=== PATIENT | female | born 1935 | race Caucasian/White ===

== ENCOUNTER → 2017-07-28 | Outpatient (CLI) | payer MEDICARE | END | disposition home or self-care (01) | LOC: ECHO 10:40 | DX: I11.9 Hypertensive heart disease without heart failure (principal); I08.1 Rheumatic disorders of both mitral and tricuspid valves; R07.9 Chest pain, unspecified | CPT/HCPCS: 93225; 93306 ==

== ENCOUNTER 2018-08-02 10:48 | Inpatient (IN) | payer MEDICARE ==
[~2018-08-02] VITALS: Ht 162.6 cm; Wt 66.3 kg
[2018-08-02 11:11] LABS: BASO # 0.1 x10^3/uL (0.0-0.2); BASO % 1 % (0-3); EOS # 0.2 x10^3/uL (0.0-0.7); EOS % 2 % (0-3); HEMATOCRIT 51.4 % (36.0-47.0); LYMPH # 2.5 x10^3/uL (1.0-4.8); LYMPH % 28 % (24-48); MEAN CORPUSCULAR HEMOGLOBIN 31 pg (25-35); MEAN CORPUSCULAR HGB CONC 33 g/dL (31-37); MEAN CORPUSCULAR VOLUME 93 fL (79-100); MONO # 0.7 x10^3/uL (0.0-1.1); MONO % 8 % (0-9); NEUT # 5.5 x10^3uL (1.8-7.7); NEUT % 61 % (31-73); PLATELET COUNT 243 x10^3/uL (140-400); RED BLOOD COUNT 5.51 x10^6/uL (3.50-5.40); RED CELL DISTRIBUTION WIDTH 13.9 % (11.5-14.5)
--- NOTE | 2018-08-02 11:14 | RAD ---
EXAM: Head CT without contrast. HISTORY: Slurred speech. Headache. Code stroke. TECHNIQUE: Computed tomographic images of the head were obtained without contrast. *One or more of the following individualized dose reduction techniques were utilized for this examination: 1. Automated exposure control. 2. Adjustment of the mA and/or kV according to patient size. 3. Use of iterative reconstruction technique. COMPARISON: None. FINDINGS: There is no acute or subacute extra-axial or intraparenchymal hemorrhage. There is no mass effect or midline shift. There is no hydrocephalus. There is cerebral atrophy with increased bifrontal extra-axial space. There are areas of hypodensity within the cerebral white matter, likely due to chronic small vessel disease. There is incidental orbital band keratopathy and a suspected right rocio bullosa. The mastoid air cells are clear. No suspicious calvarial lesion is seen. IMPRESSION: 1. No acute intracranial finding. Note is made that MRI is more sensitive for acute infarction. 2. Subtle areas of hypodensity within the cerebral white, likely due to chronic small vessel disease. 3. Cerebral atrophy. Findings were discussed with Dr. Toribio at 1110 hours on 08/02/2018 according to code stroke protocol. Electronically signed by: Shikha Torres MD (08/02/2018 11:10 AM) [facility]
[2018-08-02] MEDS ORDERED: fentaNYL PF VIAL 100 MCG/2 ML VIAL IV ONE ×2 (11:15→12:00)
[2018-08-02] MEDS ORDERED: ONDANSETRON PF 4 MG/2 ML VIAL. IV ONE (11:15)
[2018-08-02 11:19] LABS: CALCIUM 10.2 mg/dL (8.5-10.1); CREATININE 0.9 mg/dL (0.6-1.0); GFR 59.9
[2018-08-02 11:25] LABS: ALBUMIN 3.8 g/dL (3.4-5.0); PROTHROMBIN TIME PATIENT 13.5 SEC (11.7-14.0); TOTAL BILIRUBIN 0.5 mg/dL (0.2-1.0); TOTAL PROTEIN 7.5 g/dL (6.4-8.2)
--- NOTE | 2018-08-02 11:32 | RAD ---
EXAM: Chest, single view. HISTORY: Slurred speech. COMPARISON: None. FINDINGS: A frontal view of the chest obtained. There is no infiltrate, pleural effusion or pneumothorax. The heart is upper normal in size. There are partially calcified breast implants. IMPRESSION: No acute pulmonary finding. Electronically signed by: Shikha Torres MD (08/02/2018 11:29 AM) [facility]
[2018-08-02] MEDS ORDERED: CONTRAST GIVEN. MC PRN (11:45)
[2018-08-02] MEDS ORDERED: IOHEXOL 300 MG/ML 100ML VIAL. IV ONE (11:45)
--- NOTE | 2018-08-02 12:08 | PHYS DOC ---
Past Medical History Past Medical History: Arthritis, Hypertension, Migraines Alcohol Use: None Drug Use: None Adult General Chief Complaint Chief Complaint: HEADACHE HPI HPI Patient is a 82 year old female who presents with complaining of headache and blurred vision. Patient states she was [place] [facility] and felt sudden onset of sharp right retro-orbital headache at 1020(less than 50 minutes prior to arrival to ER) start blurred vision and eye tearing and redness is the worse pain she will had. Patient rated her pain 10 over 10 and friend states she had slurred speech, facial droop and problem with her balance. Patient states she had the same pain 3 days ago that last about an hour and resolved spontaneously. Patient denies nausea, chest pain, shortness of breath, extremity weakness or numbness. She rated her pain 7/10 after arrival to ER. Code stroke was activated after evaluation of patient. Review of Systems Review of Systems Constitutional: Denies fever or chills [] Eyes: Denies change in visual acuity, redness, or eye pain [] HENT: Denies nasal congestion or sore throat [] Respiratory: Denies cough or shortness of breath [] Cardiovascular: No additional information not addressed in HPI [] GI: Denies abdominal pain, nausea, vomiting, bloody stools or diarrhea [] : Denies dysuria or hematuria [] Musculoskeletal: Denies back pain or joint pain [] Integument: Denies rash or skin lesions [] Neurologic: Reports headache, denies focal weakness or sensory changes [] Endocrine: Denies polyuria or polydipsia [] All other systems were reviewed and found to be within normal limits, except as documented in this note. Current Medications Current Medications Current Medications Medications (Trade) Dose Ordered Sig/Vijaya Start Time Stop Time Status Last Admin Dose Admin Fentanyl Citrate (Fentanyl 2ml Vial) 50 mcg 1X ONCE 08/02/18 11:15 08/02/18 11:16 DC 08/02/18 11:14 50 MCG Info (CONTRAST GIVEN -- Rx MONITORING) 1 each PRN DAILY PRN 08/02/18 11:45 08/04/18 11:44 Iohexol (Omnipaque 300 Mg/ml) 75 ml 1X ONCE 08/02/18 11:45 08/02/18 11:46 DC 08/02/18 11:45 75 ML Ondansetron HCl (Zofran) 4 mg 1X ONCE 08/02/18 11:15 08/02/18 11:16 DC 08/02/18 11:14 4 MG Allergies Allergies Allergies Coded Allergies Type Severity Reaction Last Updated Verified Sulfa (Sulfonamide Antibiotics) Allergy Unknown 08/02/18 Yes morphine Allergy Unknown 08/02/18 Yes nitrofurantoin Allergy Unknown 08/02/18 Yes Physical Exam Physical Exam Constitutional: Well developed, well nourished, moderate distress, non-toxic appearance. [] HENT: Normocephalic, atraumatic, bilateral external ears normal, oropharynx moist, no oral exudates, nose normal, mild right facial droop. [] Eyes: PERRLA, EOMI, conjunctiva normal, no discharge. [] Neck: Normal range of motion, no tenderness, supple, no stridor. [] Cardiovascular:Heart rate regular rhythm, no murmur [] Lungs & Thorax: Bilateral breath sounds clear to auscultation [] Abdomen: Bowel sounds normal, soft, no tenderness, no masses, no pulsatile masses. [] Skin: Warm, dry, no erythema, no rash. [] Back: No tenderness, no CVA tenderness. [] Extremities: No tenderness, no cyanosis, no clubbing, ROM intact, no edema. [] Neurologic: Alert and oriented X 3, normal motor function, normal sensory fun ction, very mild right facial droop, mild slurred speech. NIHS Of 2 Psychologic: Affect normal, judgement normal, mood normal. [] Current Patient Data Vital Signs Vital Signs Date Time Temp Pulse Resp B/P (MAP) Pulse Ox O2 Delivery O2 Flow Rate FiO2 08/02/18 11:45 60 18 95 08/02/18 10:52 98.2 115/81 (92) Room Air 98.2 Lab Values Laboratory Tests Test 08/02/18 10:56 08/02/18 11:01 Glucose (Fingerstick) 106 mg/dL (70-99) H White Blood Count 9.0 x10^3/uL (4.0-11.0) Red Blood Count 5.51 x10^6/uL (3.50-5.40) H Hemoglobin 17.0 g/dL (12.0-15.5) H Hematocrit 51.4 % (36.0-47.0) H Mean Corpuscular Volume 93 fL (79-100) Mean Corpuscular Hemoglobin 31 pg (25-35) Mean Corpuscular Hemoglobin Concent 33 g/dL (31-37) Red Cell Distribution Width 13.9 % (11.5-14.5) Platelet Count 243 x10^3/uL (140-400) Neutrophils (%) (Auto) 61 % (31-73) Lymphocytes (%) (Auto) 28 % (24-48) Monocytes (%) (Auto) 8 % (0-9) Eosinophils (%) (Auto) 2 % (0-3) Basophils (%) (Auto) 1 % (0-3) Neutrophils # (Auto) 5.5 x10^3uL (1.8-7.7) Lymphocytes # (Auto) 2.5 x10^3/uL (1.0-4.8) Monocytes # (Auto) 0.7 x10^3/uL (0.0-1.1) Eosinophils # (Auto) 0.2 x10^3/uL (0.0-0.7) Basophils # (Auto) 0.1 x10^3/uL (0.0-0.2) Prothrombin Time 13.5 SEC (11.7-14.0) Prothrombin Time INR 1.1 (0.8-1.1) PTT 29 SEC (24-38) Sodium Level 141 mmol/L (136-145) Potassium Level 4.0 mmol/L (3.5-5.1) Chloride Level 104 mmol/L (98-107) Carbon Dioxide Level 29 mmol/L (21-32) Anion Gap 8 (6-14) Blood Urea Nitrogen 13 mg/dL (7-20) Creatinine 0.9 mg/dL (0.6-1.0) Estimated GFR (Cockcroft-Gault) 59.9 BUN/Creatinine Ratio 14 (6-20) Glucose Level 113 mg/dL (70-99) H Calcium Level 10.2 mg/dL (8.5-10.1) H Total Bilirubin 0.5 mg/dL (0.2-1.0) Aspartate Amino Transferase (AST) 19 U/L (15-37) Alanine Aminotransferase (ALT) 22 U/L (14-59) Alkaline Phosphatase 73 U/L (46-116) Troponin I Quantitative < 0.017 ng/mL (0.000-0.055) Total Protein 7.5 g/dL (6.4-8.2) Albumin 3.8 g/dL (3.4-5.0) Albumin/Globulin Ratio 1.0 (1.0-1.7) Laboratory Tests 08/02/18 11:01 Laboratory Tests 08/02/18 11:01 EKG EKG EKG interpreted by me. EKG at 11 in the right showed sinus bradycardia at rate of 51, low voltage QRS, poor R-wave progress in anteroseptal leads, normal NV and QT intervals, no acute ST and T-wave abnormalities.[] Radiology/Procedures Radiology/Procedures [facility] [address] [place], [place] [id number] IMAGING REPORT Signed PATIENT: MARLIN DOMINGO ACCOUNT: [id number] : 1935 LOCATION: ER AGE: 82 SEX: F EXAM STATUS: REG ER ORD. PHYSICIAN: STARR CABEZAS MD REASON: slurred speech and headache CODE STROKE ED 4180 PROCEDURE: CT CODE STROKE HEAD WO EXAM: Head CT without contrast. HISTORY: Slurred speech. Headache. Code stroke. TECHNIQUE: Computed tomographic images of the head were obtained without contrast. *One or more of the following individualized dose reduction techniques were utilized for this examination: 1. Automated exposure control. 2. Adjustment of the mA and/or kV according to patient size. 3. Use of iterative reconstruction technique. COMPARISON: None. FINDINGS: There is no acute or subacute extra-axial or intraparenchymal hemorrhage. There is no mass effect or midline shift. There is no hydrocephalus. There is cerebral atrophy with increased bifrontal extra-axial space. There are areas of hypodensity within the cerebral white matter, likely due to chronic small vessel disease. There is incidental orbital band keratopathy and a suspected right rocio bullosa. The mastoid air cells are clear. No suspicious calvarial lesion is seen. IMPRESSION: 1. No acute intracranial finding. Note is made that MRI is more sensitive for acute infarction. 2. Subtle areas of hypodensity within the cerebral white, likely due to chronic small vessel disease. 3. Cerebral atrophy. Findings were discussed with Dr. Cabezas at 1110 hours on 08/02/2018 according to code stroke protocol. Electronically signed by: Shikha Sandoval MD (08/02/2018 11:10 AM) [facility] DICTATED and SIGNED BY: SHIKHA SANDOVAL MD DATE: 08/02/18 1110 [facility] [address] [place] [address] IMAGING REPORT Signed PATIENT: MARLIN DOMINGO ACCOUNT: [id number] : 1935 LOCATION: ER AGE: 82 SEX: F EXAM STATUS: REG ER ORD. PHYSICIAN: STARR CABEZAS MD REASON: Slurred speech and headache PROCEDURE: PORTABLE CHEST 1V EXAM: Chest, single view. HISTORY: Slurred speech. COMPARISON: None. FINDINGS: A frontal view of the chest obtained. There is no infiltrate, pleural effusion or pneumothorax. The heart is upper normal in size. There are partially calcified breast implants. IMPRESSION: No acute pulmonary finding. Electronically signed by: Shikha Sandoval MD (08/02/2018 11:29 AM) [facility] DICTATED and SIGNED BY: SHIKHA SANDOVAL MD DATE: 08/02/18 112 Course & Med Decision Making Course & Med Decision Making Pertinent Labs and Imaging studies reviewed. (See chart for details) Evaluation of patient in ER showed 82-year-old male patient brought in by friend because of sudden onset of headache, slurred speech and facial droop. Patient had blood pressure of 120s at arrival to ER and NIH scale of 2. Blood pressure gradually improved with fentanyl to 180s. CT head was unremarkable. Patient was not a candidate for TPA because of very low NIH scale that gradually improved condition after decrease of blood pressure and headache. CT angio of head and neck is pending. Dr. Austin on-call neurologist was consulted at 1150 and agreed with not starting TPA.Patient requiring admission for further evaluation and treatment. Discussed with Dr. Moore who is in agreement with admission. Discussed findings and plan with patient and family, who acknowledge understanding and agreement. Dragon Disclaimer Dragon Disclaimer This electronic medical record was generated, in whole or in part, using a voice recognition dictation system. Departure Departure Impression: Primary Impression: Acute focal neurological deficit, onset within 3 hours Additional Impressions: Sudden onset of severe headache Hypertensive urgency Disposition: 09 ADMITTED INPATIENT (at 1201) Admitting Physician: Other (Dr Moore accepted admission at 1200) Condition: GUARDED Referrals: BOB NELSON MD (PCP) NIHSS Stroke Scale NIH Stroke Scale: NIH Stroke Scale Response (Comments) Value Level of Consciousness: 0 Alert/Responsive 0 LOC Questions: 0 Answers both correctly 0 Best Gaze: 0 Normal 0 Visual: 0 No visual loss 0 Facial Palsy: 1 Minor paralysis 1 Motor - Left Arm 0 No drift 0 Motor - Right Arm 0 No drift 0 Motor - Left Leg 0 No drift 0 Motor: Right Leg 0 No drift 0 Limb Ataxia: 0 Absent 0 Sensory: 0 No loss 0 Best Language: 1 Mild to mod aphasia 1 Dysathria: 0 Normal 0 Extinction and Inattention: 0 Normal 0 Total 2 Critical Care Time Critical care time was 70 minutes exclusive of procedures. Problem Qualifiers STARR CABEZAS MD August 02, 2018 12:08
--- NOTE | 2018-08-02 12:23 | RAD ---
EXAM: Head and neck CT angiogram with intravenous contrast. HISTORY: Code stroke. Slurred speech. Headache. TECHNIQUE: Computed tomographic images of the head and neck were obtained following the administration of 95 cc Omnipaque 300 intravenous contrast. Three-dimensional maximum intensity projection images were obtained. *One or more of the following individualized dose reduction techniques were utilized for this examination: 1. Automated exposure control. 2. Adjustment of the mA and/or kV according to patient size. 3. Use of iterative reconstruction technique. COMPARISON: Noncontrast head CT obtained on the same date. FINDINGS: There is partially calcified atherosclerotic plaque involving the aortic arch. There is no evidence of aortic aneurysm or dissection on the [id number]. There is partially calcified atherosclerotic plaque within the aortic arch great vessel origins and proximal aspects. This results in less than 50 percent stenosis. There is also partially calcified atherosclerotic plaque at the origin of the right vertebral artery, without significant stenosis. There is partially calcified atherosclerotic plaque within the carotid bulbs and proximal internal and external carotid arteries. This results in less than 50 percent stenosis. There is slight luminal irregularity involving the supraclinoid internal carotid arteries, with less than 50 percent stenosis. The anterior commuting artery and bilateral posterior communicating arteries are patent. There is slight relative decreased flow within the superior left middle cerebral artery branches. This may be developmental. No filling defect is seen. No aneurysm is seen. The right vertebral artery is slightly dominant. The bilateral posterior inferior cerebellar arteries are both seen. The basilar artery is slightly diminutive, likely due to anterior dominant circulation. No suspicious enhancing lesion is seen. There is cerebral volume loss. There are areas of hypodensity within the cerebral white matter, likely due to chronic small vessel disease. There is no mass effect or midline shift. There is no hydrocephalus. The airways midline and widely patent. There is no neck lymphadenopathy. There is pulmonary emphysema. There are prominent central pulmonary vessels which may be due to chronic pulmonary artery hypertension. There are few calcified granulomas. There are degenerative changes throughout the spine. There is multilevel listhesis and cervical kyphosis. There are few bone islands. There is no acute osseous finding. There is no severe foraminal or central canal stenosis. There is a suspected tiny left thyroid cyst. There is a 5 mm nodule adjacent to a calcified granuloma within the right upper lobe. IMPRESSION: 1. Slight relative decreased flow within the superior left middle cerebral artery branches. This is not seen on reconstructed images and may be physiologic or development. No filling defect is seen to suggest embolus or hemodynamically significant stenosis. 2. Mild atherosclerotic plaque involving the aortic arch great vessels and carotid bifurcations, with less than 50 percent stenosis. 3. Decreased attenuation within the cerebral white matter,, likely due to chronic small vessel disease. 4. Cerebral atrophy. 5. Pulmonary emphysema. 6. 5 mm nodule adjacent to a calcified granuloma within the right upper lobe. Follow-up can be performed according to Fleischner Society criteria if clinically indicated. Fleischner Society recommendations (Radiology 2017): SOLID NODULES Solitary solid nodule <6 mm - low-risk patient: no routine follow-up required - high-risk patient: optional CT at 12 months (particularly with suspicious nodule morphology and/or upper lobe location) Solitary solid nodule 6-8 mm - low-risk patient: CT at 6-12 months, then consider CT at 18-24 months - high risk patient: CT at 6-12 months, then if persistent CT at 18-24 months Solitary solid nodule >8 mm - consider CT at 3 months, PET/CT, or tissue sampling Multiple solid nodules <6 mm - low-risk patient: no routine follow-up required - high-risk patient: optional CT at 12 months Multiple solid nodules >6 mm - low-risk patient: CT at 3-6 months, then consider CT at 18-24 months - high risk patient: CT at 3-6 months, then if persistent CT at 18-24 months SUBSOLID NODULES Solitary ground glass nodule <6 mm - no routine follow-up required Solitary ground glass nodule > or = 6 mm - CT at 6-12 months, then if persistent CT every 2 years until 5 years Solitary part solid nodule > or = 6mm - CT at 3-4 months, the if persistent and solid component remains <6 mm, annual CT until 5 years Multiple subsolid nodules <6 mm - CT at 3-6 months, then if stable consider CT at 2 and 4 years in high risk patients Multiple subsolid nodules > or = 6 mm - CT at 3-6 months, then subsequent management based on the most suspicious nodule(s) PQRS Compliance Statement - Stenosis calculations for CT, MR and conventional angiography are based upon measurement of the distal ICA diameter in accordance with the NASCET methodology. Stenosis calculations for carotid ultrasound studies are derived from validated velocity criteria which are known to correlate with the NASCET methodology. Electronically signed by: Shikha Torres MD (08/02/2018 12:20 PM) [facility]
--- NOTE | 2018-08-02 12:35 | EKG ---
[facility] [address] [place] [id number] Test Date: 2018-08-02 Test Time: 11:11:44 Pat Name: MARLIN DOMINGO Department: Room: Gender: F Card Decorator: : 1935 Requested By: STARR CABEZAS Order Number: [id number] Reading MD: Marvin Brar Measurements Intervals [place] Rate: 51 P: 43 CO: 126 QRS: 42 QRSD: 84 T: 20 QT: 426 QTc: 394 Interpretive Statements SINUS RHYTHM LOW LIMB LEAD VOLTAGE QRS(T) CONTOUR ABNORMALITY CANNOT RULE OUT ANTEROSEPTAL MYOCARDIAL DAMAGE Electronically Signed On 08-05-2018 16:00:33 CDT by Marvin Brar
[2018-08-02] MEDS ORDERED: ACETAMINOPHEN 650 MG SUPP.RECT. PR PRN (14:45)
[2018-08-02] MEDS ORDERED: ASPIRIN RECTAL 300 MG SUPP. PR PRN (14:45)
[2018-08-02] MEDS ORDERED: ACETAMINOPHEN 325 MG TABLET. PO PRN (14:45)
--- NOTE | 2018-08-02 14:47 | PDOC2 ---
NEUROLOGY CONSULT Date of Admission Date of Admission DATE: 08/02/18 TIME: 14:40 Reason for Consult Reason for Consult: Stroke symptoms Referring Physician Referring Physician: Dr. Moore PCP: Dr. Bar Source Source: Chart review, Patient History of Present Illness History of Present Illness The patient is an 82-year-old right-handed female who about 10:30 today noticed headache, right facial drooping, dizziness. She has a long history of headaches. She had some similar symptoms 2 days ago. She feels fine now. Blood pressure was markedly elevated in the emergency department. I discussed the case with Dr. Toribio. We agreed that the patient was not a candidate for alteplase given the rapid improvement in symptoms and NIH score of 2. Patient denies any prior history of stroke, seizure, or head injury. Past Medical History Cardiovascular: HTN, Hyperlipidemia Musculoskeletal: Osteoarthritis Rheumatologic: Other (lytic skull lesions, workup negative for myeloma.) Past Surgical History Past Surgical History: Other (lumbar instrumentation) Family History Family History: CAD, CVA Social History Social History , smokes, no alcohol, retired Current Medications Current Medications Current Medications Ondansetron HCl (Zofran) 4 mg 1X ONCE IV Last administered on 08/02/18at 11:14; Start 08/02/18 at 11:15; Stop 08/02/18 at 11:16; Status DC Fentanyl Citrate (Fentanyl 2ml Vial) 50 mcg 1X ONCE IV Last administered on 08/02/18at 11:14; Start 08/02/18 at 11:15; Stop 08/02/18 at 11:16; Status DC Iohexol (Omnipaque 300 Mg/ml) 75 ml 1X ONCE IV Last administered on 08/02/18at 11:45; Start 08/02/18 at 11:45; Stop 08/02/18 at 11:46; Status DC Info (CONTRAST GIVEN -- Rx MONITORING) 1 each PRN DAILY PRN MC SEE COMMENTS; Start 08/02/18 at 11:45; Stop 08/04/18 at 11:44 Fentanyl Citrate (Fentanyl 2ml Vial) 50 mcg 1X ONCE IV Last administered on 08/02/18at 12:08; Start 08/02/18 at 12:00; Stop 08/02/18 at 12:01; Status DC Allergies Allergies: Coded Allergies: Sulfa (Sulfonamide Antibiotics) (Verified Allergy, Unknown, 5/5/19) morphine (Verified Allergy, Unknown, 08/02/18) nitrofurantoin (Verified Allergy, Unknown, 08/02/18) ROS Review of System Negative for fever, chills, weight loss, shortness of breath, chest pain, indigestion, hematochezia, melena, and dysuria. Full 14-point review of systems is negative. Physical Exam Physical Examination General: Well-developed, well-nourished white female in no acute distress HEENT: Normocephalic andatraumatic. Tympanic membranes clear.Temporal arteriespulsatile and nontender.Fundoscopic exam unremarkable Neck: Supple without bruit, no meningismus Musculoskeletal: Stability:see neurologic. Gait exam:see neurologic. Tone:see neurologic.Strength:see neurologic. Neurological: Mental Status:intact, orientation, memory, attention span/concentration, language, fund of knowledge normal. Cranial Nerves:Pupils equal and reactive to light, extraocular movements areintact, visual cash are full to confrontation. Facial sensation is normal. There is no facial asymmetry. Vestibulo-ocular reflex is intact. Palate elevates and tongue protrudes in midline. All other cranial related problems are negative except as mentioned before.Reflexes:2+ and symmetric with flexor plantar responses. Motor:5/5 strength with normal tone and bulk. Coordination:Finger-nose finger and [id number] testing are normal. Rapid alternating movements and fine finger movements are intact. Gait:Normal, including tandem. Sensory:Normal pinprick, vibration, light touch, proprioception. Vitals VITALS Vital Signs Date Time Temp Pulse Resp B/P (MAP) Pulse Ox O2 Delivery O2 Flow Rate FiO2 08/02/18 13:38 99 08/02/18 13:20 63 08/02/18 12:08 14 08/02/18 10:52 98.2 115/81 (92) Room Air 98.2 Labs Labs Laboratory Tests Test 08/02/18 10:56 08/02/18 11:01 Glucose (Fingerstick) 106 mg/dL (70-99) White Blood Count 9.0 x10^3/uL (4.0-11.0) Red Blood Count 5.51 x10^6/uL (3.50-5.40) Hemoglobin 17.0 g/dL (12.0-15.5) Hematocrit 51.4 % (36.0-47.0) Mean Corpuscular Volume 93 fL (79-100) Mean Corpuscular Hemoglobin 31 pg (25-35) Mean Corpuscular Hemoglobin Concent 33 g/dL (31-37) Red Cell Distribution Width 13.9 % (11.5-14.5) Platelet Count 243 x10^3/uL (140-400) Neutrophils (%) (Auto) 61 % (31-73) Lymphocytes (%) (Auto) 28 % (24-48) Monocytes (%) (Auto) 8 % (0-9) Eosinophils (%) (Auto) 2 % (0-3) Basophils (%) (Auto) 1 % (0-3) Neutrophils # (Auto) 5.5 x10^3uL (1.8-7.7) Lymphocytes # (Auto) 2.5 x10^3/uL (1.0-4.8) Monocytes # (Auto) 0.7 x10^3/uL (0.0-1.1) Eosinophils # (Auto) 0.2 x10^3/uL (0.0-0.7) Basophils # (Auto) 0.1 x10^3/uL (0.0-0.2) Prothrombin Time 13.5 SEC (11.7-14.0) Prothromb Time International Ratio 1.1 (0.8-1.1) Activated Partial Thromboplast Time 29 SEC (24-38) Sodium Level 141 mmol/L (136-145) Potassium Level 4.0 mmol/L (3.5-5.1) Chloride Level 104 mmol/L (98-107) Carbon Dioxide Level 29 mmol/L (21-32) Anion Gap 8 (6-14) Blood Urea Nitrogen 13 mg/dL (7-20) Creatinine 0.9 mg/dL (0.6-1.0) Estimated GFR (Cockcroft-Gault) 59.9 BUN/Creatinine Ratio 14 (6-20) Glucose Level 113 mg/dL (70-99) Calcium Level 10.2 mg/dL (8.5-10.1) Total Bilirubin 0.5 mg/dL (0.2-1.0) Aspartate Amino Transf (AST/SGOT) 19 U/L (15-37) Alanine Aminotransferase (ALT/SGPT) 22 U/L (14-59) Alkaline Phosphatase 73 U/L (46-116) Troponin I Quantitative < 0.017 ng/mL (0.000-0.055) Total Protein 7.5 g/dL (6.4-8.2) Albumin 3.8 g/dL (3.4-5.0) Albumin/Globulin Ratio 1.0 (1.0-1.7) Laboratory Tests Test 08/02/18 10:56 08/02/18 11:01 Glucose (Fingerstick) 106 mg/dL (70-99) White Blood Count 9.0 x10^3/uL (4.0-11.0) Red Blood Count 5.51 x10^6/uL (3.50-5.40) Hemoglobin 17.0 g/dL (12.0-15.5) Hematocrit 51.4 % (36.0-47.0) Mean Corpuscular Volume 93 fL (79-100) Mean Corpuscular Hemoglobin 31 pg (25-35) Mean Corpuscular Hemoglobin Concent 33 g/dL (31-37) Red Cell Distribution Width 13.9 % (11.5-14.5) Platelet Count 243 x10^3/uL (140-400) Neutrophils (%) (Auto) 61 % (31-73) Lymphocytes (%) (Auto) 28 % (24-48) Monocytes (%) (Auto) 8 % (0-9) Eosinophils (%) (Auto) 2 % (0-3) Basophils (%) (Auto) 1 % (0-3) Neutrophils # (Auto) 5.5 x10^3uL (1.8-7.7) Lymphocytes # (Auto) 2.5 x10^3/uL (1.0-4.8) Monocytes # (Auto) 0.7 x10^3/uL (0.0-1.1) Eosinophils # (Auto) 0.2 x10^3/uL (0.0-0.7) Basophils # (Auto) 0.1 x10^3/uL (0.0-0.2) Prothrombin Time 13.5 SEC (11.7-14.0) Prothromb Time International Ratio 1.1 (0.8-1.1) Activated Partial Thromboplast Time 29 SEC (24-38) Sodium Level 141 mmol/L (136-145) Potassium Level 4.0 mmol/L (3.5-5.1) Chloride Level 104 mmol/L (98-107) Carbon Dioxide Level 29 mmol/L (21-32) Anion Gap 8 (6-14) Blood Urea Nitrogen 13 mg/dL (7-20) Creatinine 0.9 mg/dL (0.6-1.0) Estimated GFR (Cockcroft-Gault) 59.9 BUN/Creatinine Ratio 14 (6-20) Glucose Level 113 mg/dL (70-99) Calcium Level 10.2 mg/dL (8.5-10.1) Total Bilirubin 0.5 mg/dL (0.2-1.0) Aspartate Amino Transf (AST/SGOT) 19 U/L (15-37) Alanine Aminotransferase (ALT/SGPT) 22 U/L (14-59) Alkaline Phosphatase 73 U/L (46-116) Troponin I Quantitative < 0.017 ng/mL (0.000-0.055) Total Protein 7.5 g/dL (6.4-8.2) Albumin 3.8 g/dL (3.4-5.0) Albumin/Globulin Ratio 1.0 (1.0-1.7) Images Images Head CT without contrast. HISTORY: Slurred speech. Headache. Code stroke. TECHNIQUE: Computed tomographic images of the head were obtained without contrast. *One or more of the following individualized dose reduction techniques were utilized for this examination: 1. Automated exposure control. 2. Adjustment of the mA and/or kV according to patient size. 3. Use of iterative reconstruction technique. COMPARISON: None. FINDINGS: There is no acute or subacute extra-axial or intraparenchymal hemorrhage. There is no mass effect or midline shift. There is no hydrocephalus. There is cerebral atrophy with increased bifrontal extra-axial space. There are areas of hypodensity within the cerebral white matter, likely due to chronic small vessel disease. There is incidental orbital band keratopathy and a suspected right rocio bullosa. The mastoid air cells are clear. No suspicious calvarial lesion is seen. IMPRESSION: 1. No acute intracranial finding. Note is made that MRI is more sensitive for acute infarction. 2. Subtle areas of hypodensity within the cerebral white, likely due to chronic small vessel disease. 3. Cerebral atrophy. Head and neck CT angiogram with intravenous contrast. HISTORY: Code stroke. Slurred speech. Headache. TECHNIQUE: Computed tomographic images of the head and neck were obtained following the administration of 95 cc Omnipaque 300 intravenous contrast. Three-dimensional maximum intensity projection images were obtained. *One or more of the following individualized dose reduction techniques were utilized for this examination: 1. Automated exposure control. 2. Adjustment of the mA and/or kV according to patient size. 3. Use of iterative reconstruction technique. COMPARISON: Noncontrast head CT obtained on the same date. FINDINGS: There is partially calcified atherosclerotic plaque involving the aortic arch. There is no evidence of aortic aneurysm or dissection on the [id number]. There is partially calcified atherosclerotic plaque within the aortic arch great vessel origins and proximal aspects. This results in less than 50 percent stenosis. There is also partially calcified atherosclerotic plaque at the origin of the right vertebral artery, without significant stenosis. There is partially calcified atherosclerotic plaque within the carotid bulbs and proximal internal and external carotid arteries. This results in less than 50 percent stenosis. There is slight luminal irregularity involving the supraclinoid internal carotid arteries, with less than 50 percent stenosis. The anterior commuting artery and bilateral posterior communicating arteries are patent. There is slight relative decreased flow within the superior left middle cerebral artery branches. This may be developmental. No filling defect is seen. No aneurysm is seen. The right vertebral artery is slightly dominant. The bilateral posterior inferior cerebellar arteries are both seen. The basilar artery is slightly diminutive, likely due to anterior dominant circulation. No suspicious enhancing lesion is seen. There is cerebral volume loss. There are areas of hypodensity within the cerebral white matter, likely due to chronic small vessel disease. There is no mass effect or midline shift. There is no hydrocephalus. The airways midline and widely patent. There is no neck lymphadenopathy. There is pulmonary emphysema. There are prominent central pulmonary vessels which may be due to chronic pulmonary artery hypertension. There are few calcified granulomas. There are degenerative changes throughout the spine. There is multilevel listhesis and cervical kyphosis. There are few bone islands. There is no acute osseous finding. There is no severe foraminal or central canal stenosis. There is a suspected tiny left thyroid cyst. There is a 5 mm nodule adjacent to a calcified granuloma within the right upper lobe. IMPRESSION: 1. Slight relative decreased flow within the superior left middle cerebral artery branches. This is not seen on reconstructed images and may be physiologic or development. No filling defect is seen to suggest embolus or hemodynamically significant stenosis. 2. Mild atherosclerotic plaque involving the aortic arch great vessels and carotid bifurcations, with less than 50 percent stenosis. 3. Decreased attenuation within the cerebral white matter,, likely due to chronic small vessel disease. 4. Cerebral atrophy. 5. Pulmonary emphysema. 6. 5 mm nodule adjacent to a calcified granuloma within the right upper lobe. Follow-up can be performed according to Fleischner Society criteria if clinically indicated. Echocardiogram 07/28: LEFT VENTRICLE The left ventricle is normal size. There is mild left ventricular hypertrophy. The left ventricular systolic function is normal. The Ejection Fraction is 65-7 0%. There is normal LV segmental wall motion. RIGHT VENTRICLE The right ventricle is normal size. There is normal right ventricular wall thickness. The right ventricular systolic function is normal. ATRIA The left atrium size is normal. 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 The interatrial septum is intact with no evidence for an atrial septal defect or patent foramen ovale as noted on 2-D or Doppler imaging. AORTIC VALVE Doppler and Color Flow revealed no significant aortic regurgitation. There is no significant aortic valvular stenosis. MITRAL VALVE There is no evidence of mitral valve prolapse. There is no mitral valve stenosis. Doppler and Color-flow revealed mild mitral regurgitation. TRICUSPID VALVE Doppler and Color Flow revealed mild to moderate tricuspid regurgitation. There is no tricuspid valve stenosis. PULMONIC VALVE The pulmonic valve is not well visualized. Doppler and Color Flow revealed mild pulmonic valvular regurgitation. There is no pulmonic valvular stenosis. GREAT VESSELS The aortic root is normal in size. The IVC is normal in size and collapses >50% with inspiration. PERICARDIAL EFFUSION There is no pleural effusion. There is no evidence of significant pericardial effusion. Critical Notification Critical Value: No <Conclusion> The left ventricular systolic function is normal. The Ejection Fraction is 65-70%. There is normal LV segmental wall motion. Mild mitral regurgitation. Mild to moderate tricuspid regurgitation. There is no evidence of significant pericardial effusion. Assessment/Plan Assessment/Plan Impression: Stroke symptoms, most likely related to hypertensive encephalopathy Long history of migraine headaches. Recommendations: Judicious blood pressure control Resume aspirin Check lipids Advised smoking cessation Rehabilitation evaluation Check MRI of the brain She has had CT angiogram and had an echocardiogram a week ago, no need to repeat Check sedimentation rate. Thank you for letting me help with the patient's care. LILIANA BEEBE MD August 02, 2018 14:47
[2018-08-02 14:53] VITALS: BP 149/49
[2018-08-02] MEDS: ASPIRIN ENTERIC COATED 325 MG TABLET.DR. PO SCH (16:56)
[2018-08-02] MEDS: IV NORMAL SALINE 1000ML BAG 1,000 ML IV SCH (16:57)
[2018-08-02] MEDS ORDERED: LISI10TA2 PO (18:39)
[2018-08-02 19:25] VITALS: BP 122/47
[2018-08-02] MEDS ORDERED: MAGNESIUM HYDROXIDE 2,400 MG/30 ML ORAL.SUSP. PO PRN (20:15)
[2018-08-02] MEDS ORDERED: IPRATRPIUM/ALBUTEROL 0.5/2.5MG 3 ML NEBU. NEB SCH (20:15)
[2018-08-02] MEDS ORDERED: ONDANSETRON PF 4 MG/2 ML VIAL. IV PRN (20:15)
[2018-08-02] MEDS ORDERED: ENALAPRILAT 1.25 MG/ML VIAL. IVP PRN (20:15)
[2018-08-02] MEDS ORDERED: ENOXAPARIN 40 MG/0.4 ML SYRINGE. SQ SCH (20:15)
--- NOTE | 2018-08-02 20:27 | PDOC1 ---
History and Physical Date of Admission Date of Admission DATE: 08/02/18 TIME: 20:01 Identification/Chief Complaint Chief Complaint Headache Source Source: Patient History of Present Illness History of Present Illness Ms Lozano is an 82 year old female w/ PMHx OA, lytic skull lesions, HTN, and migraines who presents with complaining of headache and blurred vision. Patient states she was at [employer] and felt sudden onset of sharp right sided headache with retro-orbital pain at near 10:30 am with associated blurred vision and eye tearing and redness. Patient rated her pain 10 / 10 and friend states she had slurred speech (states she always has slurred speech), new right sided facial droop and problem with her balance. Patient states she had the same pain 2-3 days ago that last about an hour and resolved spontaneously. Patient denies nausea, chest pain, shortness of breath, extremity weakness or numbness. Code stroke was called, negative initial head CT and CTA. Neurology was consulted and given her NIH of 2 and rapid improvement once evaluated by neuro and myself tPA was not given. SBP noted 220 on examination and pain 8/10 on my evaluation. Of note her Hb was 17 and fasting glucose 110 and CTA noted emphysematous changes in bilateral lungs. Past Medical History Cardiovascular: HTN, Hyperlipidemia Musculoskeletal: Osteoarthritis Rheumatologic: Other (lytic skull lesions, workup negative for myeloma.) Past Surgical History Past Surgical History: Other (lumbar instrumentation) Family History Family History: High Cholestrol, Hypertension Social History Smoke: <1 pack per day ALCOHOL: none Drugs: None Current Problem List Problem List Problems Medical Problems: (1) Acute focal neurological deficit, onset within 3 hours Status: Acute (2) Hypertensive urgency Status: Acute (3) Sudden onset of severe headache Status: Acute Current Medications Current Medications Current Medications Ondansetron HCl (Zofran) 4 mg 1X ONCE IV Last administered on 08/02/18at 11:14; Start 08/02/18 at 11:15; Stop 08/02/18 at 11:16; Status DC Fentanyl Citrate (Fentanyl 2ml Vial) 50 mcg 1X ONCE IV Last administered on 08/02/18at 11:14; Start 08/02/18 at 11:15; Stop 08/02/18 at 11:16; Status DC Iohexol (Omnipaque 300 Mg/ml) 75 ml 1X ONCE IV Last administered on 08/02/18at 11:45; Start 08/02/18 at 11:45; Stop 08/02/18 at 11:46; Status DC Info (CONTRAST GIVEN -- Rx MONITORING) 1 each PRN DAILY PRN MC SEE COMMENTS; Start 08/02/18 at 11:45; Stop 08/04/18 at 11:44 Fentanyl Citrate (Fentanyl 2ml Vial) 50 mcg 1X ONCE IV Last administered on 08/02/18at 12:08; Start 08/02/18 at 12:00; Stop 08/02/18 at 12:01; Status DC Sodium Chloride 1,000 ml @ 100 mls/hr Q10H IV Last administered on 08/02/18at 16:57; Start 08/02/18 at 14:44 Acetaminophen (Tylenol) 650 mg PRN Q6HRS PRN PO TEMP > 100.4F; Start 08/02/18 at 14:45 Acetaminophen (Tylenol Supp) 650 mg PRN Q4HRS PRN OK TEMP > 100.4F; Start 08/02/18 at 14:45 Aspirin (Ecotrin) 325 mg DAILYWBKFT PO Last administered on 08/02/18at 16:56; Start 08/02/18 at 15:00 Aspirin (Aspirin) 300 mg PRN DAILY PRN OK IF UNABLE TO TAKE PO; Start 08/02/18 at 14:45 Active Scripts Active Reported Lisinopril 10 Mg Tablet 1 Tab PO DAILY Allergies Allergies: Coded Allergies: Sulfa (Sulfonamide Antibiotics) (Verified Allergy, Unknown, 08/02/18) morphine (Verified Allergy, Unknown, 08/02/18) nitrofurantoin (Verified Allergy, Unknown, 08/02/18) ROS General: YES: Fatigue, Malaise; No: Chills, Night Sweats, Appetite, Other PSYCHOLOGICAL ROS: No: Anxiety, Behavioral Disorder, Concentration difficultie, Decreased libido, Depression, Disorientation, Hallucinations, Hostility, Irritablity, Memory difficulties, Mood Swings, Obsessive thoughts, Physical abuse, Sexual abuse, Sleep disturbances, Suicidal ideation, Other Eyes: Yes Blurry vision, Yes Excessive tearing, Yes Eye Pain, Yes Photophobia; No Decreased vision, No Double vision, No Dry eyes, No Itchy Eyes, No Loss of vision, No Scotomata, No Uses contacts, No Uses glasses, No Other HEENT: YES: Heacaches, Visual Changes; No: Hearing change, Nasal congestion, Nasal discharge, Oral lesions, Sinus pain, Sore Throat, Epistaxis, Sneezing, Snoring, Tinnitus, Vertigo, Vocal changes, Other ALLERGY AND IMMUNOLOGY: No: Hives, Insect Bite Sensitivity, Itchy/Watery Eyes, Nasal Congestion, Post Nasal Drip, Seasonal Allergies, Other Hematological and Lymphatic: No: Bleeding Problems, Blood Clots, Blood Transfusions, Brusing, Night Sweats, Pallor, Swollen Lymph Nodes, Other ENDOCRINE: No: Breast Changes, Galactorrhea, Hair Pattern Changes, Hot Flashes, Malaise/lethargy, Mood Swings, Palpitations, Polydipsia/polyuria, Skin Changes, Temperature Intolerance, Unexpected Weight Changes, Other Breast: No New/Changing Breast Lumps, No Nipple changes, No Nipple discharge, No Other Respiratory: No: Cough, Hemoptysis, Orthopnea, Pleuritic Pain, Shortness of breath, SOB with excertion, Sputum Changes, Stridor, Tachypnea, Wheezing, Other Cardiovascular: No Chest Pain, No Palpitations, No Orthopnea, No Paroxysmal Noc. Dyspnea, No Edema, No Lt Headedness, No Other Gastrointestinal: No Nausea, No Vomiting, No Abdominal Pain, No Diarrhea, No Constipation, No Melena, No Hematochezia, No Other Genitourinary: No Dysuria, No Frequency, No Incontinence, No Hematuria, No Retention, No Discharge, No Urgency, No Pain, No Flank Pain, No Other, No , No , No , No , No , No , No Musculoskeletal: No Gait Disturbance, No Joint Pain, No Joint Stiffness, No Joint Swelling, No Muscle Pain, No Muscular Weakness, No Pain In:, No Swelling In:, No Other Neurological: Yes Headaches; No Behavorial Changes, No Bowel/Bladder ControlChng, No Confusion, No Dizziness, No Gait Disturbance, No Impaired Coord/balance, No Memory Loss, No Numbness/Tingling, No Seizures, No Speech Problems, No Tremors, No Visual Changes, No Weakness, No Other Skin: No Dry Skin, No Eczema, No Hair Changes, No Lumps, No Mole Changes, No Mottling, No Nail Changes, No Pruritus, No Rash, No Skin Lesion Changes, No Other, No Acne Physical Exam General: Alert, Oriented X3, Cooperative, No acute distress HEENT: Atraumatic, PERRLA, EOMI, Mucous membr. moist/pink, Other (hypervascular sclera) Lungs: Clear to auscultation, Other (Scattered wheezes) Heart: S1S2, RRR, no gallops, no murmurs Abdomen: Normal bowel sounds, Soft, No tenderness, No hepatosplenomegaly, No masses Extremities: No clubbing, No cyanosis, No edema, Normal pulses, No tenderness/swelling Skin: No rashes, No breakdown, No significant lesion Neuro: Normal gait, Normal speech, Strength at / X4 ext, Normal tone, Sensation intact, Cranial nerves 3-12 NL, Reflexes 2+ Psych/Mental Status: Mental status NL, Mood NL Vitals Vitals Vital Signs Date Time Temp Pulse Resp B/P (MAP) Pulse Ox O2 Delivery O2 Flow Rate FiO2 08/02/18 18:20 Room Air 08/02/18 14:53 98.2 58 18 149/49 (82) 96 98.2 Labs Labs Laboratory Tests Test 08/02/18 10:56 08/02/18 11:01 Glucose (Fingerstick) 106 mg/dL (70-99) White Blood Count 9.0 x10^3/uL (4.0-11.0) Red Blood Count 5.51 x10^6/uL (3.50-5.40) Hemoglobin 17.0 g/dL (12.0-15.5) Hematocrit 51.4 % (36.0-47.0) Mean Corpuscular Volume 93 fL (79-100) Mean Corpuscular Hemoglobin 31 pg (25-35) Mean Corpuscular Hemoglobin Concent 33 g/dL (31-37) Red Cell Distribution Width 13.9 % (11.5-14.5) Platelet Count 243 x10^3/uL (140-400) Neutrophils (%) (Auto) 61 % (31-73) Lymphocytes (%) (Auto) 28 % (24-48) Monocytes (%) (Auto) 8 % (0-9) Eosinophils (%) (Auto) 2 % (0-3) Basophils (%) (Auto) 1 % (0-3) Neutrophils # (Auto) 5.5 x10^3uL (1.8-7.7) Lymphocytes # (Auto) 2.5 x10^3/uL (1.0-4.8) Monocytes # (Auto) 0.7 x10^3/uL (0.0-1.1) Eosinophils # (Auto) 0.2 x10^3/uL (0.0-0.7) Basophils # (Auto) 0.1 x10^3/uL (0.0-0.2) Prothrombin Time 13.5 SEC (11.7-14.0) Prothromb Time International Ratio 1.1 (0.8-1.1) Activated Partial Thromboplast Time 29 SEC (24-38) Sodium Level 141 mmol/L (136-145) Potassium Level 4.0 mmol/L (3.5-5.1) Chloride Level 104 mmol/L (98-107) Carbon Dioxide Level 29 mmol/L (21-32) Anion Gap 8 (6-14) Blood Urea Nitrogen 13 mg/dL (7-20) Creatinine 0.9 mg/dL (0.6-1.0) Estimated GFR (Cockcroft-Gault) 59.9 BUN/Creatinine Ratio 14 (6-20) Glucose Level 113 mg/dL (70-99) Calcium Level 10.2 mg/dL (8.5-10.1) Total Bilirubin 0.5 mg/dL (0.2-1.0) Aspartate Amino Transf (AST/SGOT) 19 U/L (15-37) Alanine Aminotransferase (ALT/SGPT) 22 U/L (14-59) Alkaline Phosphatase 73 U/L (46-116) Troponin I Quantitative < 0.017 ng/mL (0.000-0.055) Total Protein 7.5 g/dL (6.4-8.2) Albumin 3.8 g/dL (3.4-5.0) Albumin/Globulin Ratio 1.0 (1.0-1.7) Laboratory Tests Test 08/02/18 10:56 08/02/18 11:01 Glucose (Fingerstick) 106 mg/dL (70-99) White Blood Count 9.0 x10^3/uL (4.0-11.0) Red Blood Count 5.51 x10^6/uL (3.50-5.40) Hemoglobin 17.0 g/dL (12.0-15.5) Hematocrit 51.4 % (36.0-47.0) Mean Corpuscular Volume 93 fL (79-100) Mean Corpuscular Hemoglobin 31 pg (25-35) Mean Corpuscular Hemoglobin Concent 33 g/dL (31-37) Red Cell Distribution Width 13.9 % (11.5-14.5) Platelet Count 243 x10^3/uL (140-400) Neutrophils (%) (Auto) 61 % (31-73) Lymphocytes (%) (Auto) 28 % (24-48) Monocytes (%) (Auto) 8 % (0-9) Eosinophils (%) (Auto) 2 % (0-3) Basophils (%) (Auto) 1 % (0-3) Neutrophils # (Auto) 5.5 x10^3uL (1.8-7.7) Lymphocytes # (Auto) 2.5 x10^3/uL (1.0-4.8) Monocytes # (Auto) 0.7 x10^3/uL (0.0-1.1) Eosinophils # (Auto) 0.2 x10^3/uL (0.0-0.7) Basophils # (Auto) 0.1 x10^3/uL (0.0-0.2) Prothrombin Time 13.5 SEC (11.7-14.0) Prothromb Time International Ratio 1.1 (0.8-1.1) Activated Partial Thromboplast Time 29 SEC (24-38) Sodium Level 141 mmol/L (136-145) Potassium Level 4.0 mmol/L (3.5-5.1) Chloride Level 104 mmol/L (98-107) Carbon Dioxide Level 29 mmol/L (21-32) Anion Gap 8 (6-14) Blood Urea Nitrogen 13 mg/dL (7-20) Creatinine 0.9 mg/dL (0.6-1.0) Estimated GFR (Cockcroft-Gault) 59.9 BUN/Creatinine Ratio 14 (6-20) Glucose Level 113 mg/dL (70-99) Calcium Level 10.2 mg/dL (8.5-10.1) Total Bilirubin 0.5 mg/dL (0.2-1.0) Aspartate Amino Transf (AST/SGOT) 19 U/L (15-37) Alanine Aminotransferase (ALT/SGPT) 22 U/L (14-59) Alkaline Phosphatase 73 U/L (46-116) Troponin I Quantitative < 0.017 ng/mL (0.000-0.055) Total Protein 7.5 g/dL (6.4-8.2) Albumin 3.8 g/dL (3.4-5.0) Albumin/Globulin Ratio 1.0 (1.0-1.7) Images Images CTA Head - 1. Slight relative decreased flow within the superior left middle cerebral artery branches. This is not seen on reconstructed images and may be physiologic or development. No filling defect is seen to suggest embolus or hemodynamically significant stenosis. 2. Mild atherosclerotic plaque involving the aortic arch great vessels and carotid bifurcations, with less than 50 percent stenosis. 3. Decreased attenuation within the cerebral white matter,, likely due to chronic small vessel disease. 4. Cerebral atrophy. 5. Pulmonary emphysema. 6. 5 mm nodule adjacent to a calcified granuloma within the right upper lobe. CXR - There is no infiltrate, pleural effusion or pneumothorax. The heart is upper normal in size. There are partially calcified breast implants. VTE Prophylaxis Ordered VTE Prophylaxis Devices: No VTE Pharmacological Prophylaxi: Yes Assessment/Plan Assessment/Plan A/P: Headache - history of migraines, this seems to be similar with associated 2/2 neurologic symptoms, complicated migraine with TIA, will manage pain, neuro consult HTN urgency - with neurologic changes and LOCK, will give her home lisinopril, try to keep her SBP < 180mmHg OA - tylenol prn Prior lytic skull lesions - had w/u negative for MM HTN - on SABA alone, will continue as above Erythocytosis - possibly PV, though her smoking history puts her at risk for acquired polycythemia, will repeat CBC Elevated fasting glucose 110 - check A1c to mitigate CVA risk factors Emphysematous changes in bilateral lungs - nebulizers ordered Smoker - counseled on cessation FEN - Cardiac diet PPX - lovenox FULL CODE Inpatient for HTN urgency with complicated migraine TIA symptoms ILAN SALGADO MD August 02, 2018 20:27
[2018-08-02] MEDS ORDERED: ALBUTEROL SULFATE 2.5 MG/3 ML NEBU. NEB PRN (20:30)
[2018-08-02] MEDS: SENNOSIDES/DOCUSATE 8.6/50MG TABLET. PO SCH (21:00)
[2018-08-02] MEDS ORDERED: ATORVASTATIN CALCIUM 40 MG TABLET. PO SCH (21:00)
--- NOTE | 2018-08-02 22:21 | NUR ---
Pt. refused all meds. Pt. stated that Lipitor makes her joints hurt, she has no need for a Docusate, and she will never take a blood thinner. Will continue to monitor.
[2018-08-02 22:46] LABS: BILIRUBIN,URINE NEGATIVE (NEG); CLARITY,URINE CLEAR; NITRITE,URINE NEGATIVE (NEG); PH,URINE 5.5; PROTEIN,URINE NEGATIVE (NEG-TRACE); UROBILINOGEN,URINE 0.2 mg/dL (0.2 mg/dL)
[2018-08-02 22:53] LABS: COLOR,URINE STRAW
[2018-08-02 22:54] LABS: BACTERIA,URINE FEW /HPF (0-FEW); RBC,URINE 0 /HPF (0-2); SQUAMOUS EPITHELIAL CELL,UR FEW /LPF
[2018-08-02 23:30] VITALS: BP 152/49
[2018-08-03] MEDS: IV NORMAL SALINE 1000ML BAG 1,000 ML IV SCH (00:44)
[2018-08-03 03:57] VITALS: BP 144/67
[2018-08-03 04:33] LABS: BASO # 0.1 x10^3/uL (0.0-0.2); BASO % 1 % (0-3); EOS # 0.2 x10^3/uL (0.0-0.7); EOS % 3 % (0-3); HEMATOCRIT 42.3 % (36.0-47.0); HEMOGLOBIN 13.9 g/dL (12.0-15.5); LYMPH # 2.6 x10^3/uL (1.0-4.8); LYMPH % 38 % (24-48); MEAN CORPUSCULAR HEMOGLOBIN 31 pg (25-35); MEAN CORPUSCULAR HGB CONC 33 g/dL (31-37); MEAN CORPUSCULAR VOLUME 94 fL (79-100); MONO # 0.7 x10^3/uL (0.0-1.1); MONO % 10 % (0-9); NEUT # 3.3 x10^3uL (1.8-7.7); NEUT % 48 % (31-73); PLATELET COUNT 181 x10^3/uL (140-400); RED BLOOD COUNT 4.48 x10^6/uL (3.50-5.40); RED CELL DISTRIBUTION WIDTH 14.2 % (11.5-14.5); WHITE BLOOD COUNT 6.9 x10^3/uL (4.0-11.0)
[2018-08-03 05:37] LABS: CREATININE 0.7 mg/dL (0.6-1.0); GFR 80.1; POTASSIUM 4.7 mmol/L (3.5-5.1)
[2018-08-03 05:38] LABS: CHOLESTEROL/HDL RATIO 3.4
[2018-08-03 07:25] VITALS: BP 173/56
[2018-08-03] MEDS ORDERED: BUDESONIDE 0.5 MG/2 ML NEBU. NEB SCH (08:00)
[2018-08-03] MEDS ORDERED: LISINOPRIL 20 MG TABLET PO SCH (09:00)
[2018-08-03] MEDS ORDERED: LISINOPRIL 10 MG TABLET PO SCH (09:00)
[2018-08-03] MEDS ORDERED: hydroCHLOROthiazide 12.5 MG CAPSULE PO SCH (09:00)
[2018-08-03] MEDS: SENNOSIDES/DOCUSATE 8.6/50MG TABLET. PO SCH (09:07)
[2018-08-03] MEDS: ASPIRIN ENTERIC COATED 325 MG TABLET.DR. PO SCH (09:07)
--- NOTE | 2018-08-03 10:45 | RAD ---
EXAMINATION: Magnetic resonance imaging (MRI) of the brain and brainstem without contrast 08/03/2018 8:00 AM HISTORY: Stroke symptoms. Right-sided facial droop. TECHNIQUE: Multiplanar multi-weighted MRI of the brain and brainstem was performed without intravenous contrast using the general brain protocol. COMPARISON: CT head August 02, 2018 FINDINGS: The scalp and calvarium are normal. The superior sagittal sinus demonstrates normal venous flow. The corpus callosum is normal in shape and signal intensity. The posterior fossa is unremarkable. The pituitary and sella are normal. The brainstem and craniocervical junction are unremarkable. Mild prominence of the extra-axial spaces along the convexities bilaterally may be secondary to mild parenchymal volume loss. Diffusion weighted images reveal no hyperintensities to suggest acute cerebral infarction. The susceptibility weighted sequences reveal no evidence of acute or chronic hemorrhage. The ventricles are normal in size and position without evidence of hydrocephalus. The paranasal sinuses are normal. The visualized portions of the mastoids are unremarkable. The orbits appear normal with exception of bilateral lens replacement. Normal flow voids are demonstrated in the carotid arteries and basilar artery. IMPRESSION: 1. No evidence for acute or subacute ischemia. 2. There is prominence of the bilateral extra-axial spaces without evidence for extra-axial hemorrhage. Findings most favor mild parenchymal volume loss. Electronically signed by: Elena Chen MD (08/03/2018 10:42 AM) [id number]
[2018-08-03 11:10] VITALS: BP 135/50
[2018-08-03] MEDS ORDERED: BUDE180A IH (11:16)
[2018-08-03] MEDS ORDERED: HYDR12.575 PO (11:16)
[2018-08-03] MEDS ORDERED: ASPI325T11 PO (11:16)
[2018-08-03] MEDS ORDERED: LISI-130 PO (11:16)
[2018-08-03] MEDS ORDERED: ATOR40TA59 PO (11:16)
--- NOTE | 2018-08-03 11:19 | PDOC3 ---
Discharge Summary Visit Information Date of Admission: August 02, 2018 Date of Discharge: August 03, 2018 Admitting Diagnosis Comment: Stroke symptoms, most likely related to hypertensive encephalopathy Long history of migraine headaches Final Diagnosis Problems Medical Problems: (1) Acute focal neurological deficit, onset within 3 hours Status: Acute (2) Hypertensive urgency Status: Acute (3) Sudden onset of severe headache Status: Acute Brief Hospital Course Allergies Allergies Coded Allergies Type Severity Reaction Last Updated Verified Sulfa (Sulfonamide Antibiotics) Allergy Unknown 08/02/18 Yes morphine Allergy Unknown 08/02/18 Yes nitrofurantoin Allergy Unknown 08/02/18 Yes Vital Signs Vital Signs Date Time Temp Pulse Resp B/P (MAP) Pulse Ox O2 Delivery O2 Flow Rate FiO2 08/03/18 11:10 97.8 61 18 135/50 (78) 93 Room Air 97.8 Lab Results Laboratory Tests Test 08/02/18 10:56 08/02/18 11:01 08/02/18 22:37 08/03/18 03:35 Glucose (Fingerstick) 106 mg/dL (70-99) White Blood Count 9.0 x10^3/uL (4.0-11.0) 6.9 x10^3/uL (4.0-11.0) Red Blood Count 5.51 x10^6/uL (3.50-5.40) 4.48 x10^6/uL (3.50-5.40) Hemoglobin 17.0 g/dL (12.0-15.5) 13.9 g/dL (12.0-15.5) Hematocrit 51.4 % (36.0-47.0) 42.3 % (36.0-47.0) Mean Corpuscular Volume 93 fL (79-100) 94 fL (79-100) Mean Corpuscular Hemoglobin 31 pg (25-35) 31 pg (25-35) Mean Corpuscular Hemoglobin Concent 33 g/dL (31-37) 33 g/dL (31-37) Red Cell Distribution Width 13.9 % (11.5-14.5) 14.2 % (11.5-14.5) Platelet Count 243 x10^3/uL (140-400) 181 x10^3/uL (140-400) Neutrophils (%) (Auto) 61 % (31-73) 48 % (31-73) Lymphocytes (%) (Auto) 28 % (24-48) 38 % (24-48) Monocytes (%) (Auto) 8 % (0-9) 10 % (0-9) Eosinophils (%) (Auto) 2 % (0-3) 3 % (0-3) Basophils (%) (Auto) 1 % (0-3) 1 % (0-3) Neutrophils # (Auto) 5.5 x10^3uL (1.8-7.7) 3.3 x10^3uL (1.8-7.7) Lymphocytes # (Auto) 2.5 x10^3/uL (1.0-4.8) 2.6 x10^3/uL (1.0-4.8) Monocytes # (Auto) 0.7 x10^3/uL (0.0-1.1) 0.7 x10^3/uL (0.0-1.1) Eosinophils # (Auto) 0.2 x10^3/uL (0.0-0.7) 0.2 x10^3/uL (0.0-0.7) Basophils # (Auto) 0.1 x10^3/uL (0.0-0.2) 0.1 x10^3/uL (0.0-0.2) Prothrombin Time 13.5 SEC (11.7-14.0) Prothromb Time International Ratio 1.1 (0.8-1.1) Activated Partial Thromboplast Time 29 SEC (24-38) Sodium Level 141 mmol/L (136-145) 143 mmol/L (136-145) Potassium Level 4.0 mmol/L (3.5-5.1) 4.7 mmol/L (3.5-5.1) Chloride Level 104 mmol/L (98-107) 109 mmol/L (98-107) Carbon Dioxide Level 29 mmol/L (21-32) 23 mmol/L (21-32) Anion Gap 8 (6-14) 11 (6-14) Blood Urea Nitrogen 13 mg/dL (7-20) 11 mg/dL (7-20) Creatinine 0.9 mg/dL (0.6-1.0) 0.7 mg/dL (0.6-1.0) Estimated GFR (Cockcroft-Gault) 59.9 80.1 BUN/Creatinine Ratio 14 (6-20) Glucose Level 113 mg/dL (70-99) 93 mg/dL (70-99) Calcium Level 10.2 mg/dL (8.5-10.1) 9.0 mg/dL (8.5-10.1) Total Bilirubin 0.5 mg/dL (0.2-1.0) Aspartate Amino Transf (AST/SGOT) 19 U/L (15-37) Alanine Aminotransferase (ALT/SGPT) 22 U/L (14-59) Alkaline Phosphatase 73 U/L (46-116) Troponin I Quantitative < 0.017 ng/mL (0.000-0.055) Total Protein 7.5 g/dL (6.4-8.2) Albumin 3.8 g/dL (3.4-5.0) Albumin/Globulin Ratio 1.0 (1.0-1.7) Urine Collection Type Unknown Urine Color Straw Urine Clarity Clear Urine pH 5.5 Urine Specific [place] <=1.005 Urine Protein Negative mg/dL (NEG-TRACE) Urine Glucose (UA) Negative mg/dL (NEG) Urine Ketones (Stick) Negative mg/dL (NEG) Urine Blood Negative (NEG) Urine Nitrite Negative (NEG) Urine Bilirubin Negative (NEG) Urine Urobilinogen Dipstick 0.2 mg/dL (0.2 mg/dL) Urine Leukocyte Esterase Small (NEG) Urine RBC 0 /HPF (0-2) Urine WBC 1-4 /HPF (0-4) Urine Squamous Epithelial Cells Few /LPF Urine Bacteria Few /HPF (0-FEW) Erythrocyte Sedimentation Rate 6 (0-25) Triglycerides Level 60 mg/dL (0-150) Cholesterol Level 193 mg/dL (0-200) LDL Cholesterol, Calculated 124 mg/dL (0-100) VLDL Cholesterol, Calculated 12 mg/dL (0-40) Non-HDL Cholesterol Calculated 136 mg/dL (0-129) HDL Cholesterol 57 mg/dL (40-60) Cholesterol/HDL Ratio 3.4 Laboratory Tests Test 08/02/18 22:37 08/03/18 03:35 Urine Collection Type Unknown Urine Color Straw Urine Clarity Clear Urine pH 5.5 Urine Specific [place] <=1.005 Urine Protein Negative mg/dL (NEG-TRACE) Urine Glucose (UA) Negative mg/dL (NEG) Urine Ketones (Stick) Negative mg/dL (NEG) Urine Blood Negative (NEG) Urine Nitrite Negative (NEG) Urine Bilirubin Negative (NEG) Urine Urobilinogen Dipstick 0.2 mg/dL (0.2 mg/dL) Urine Leukocyte Esterase Small (NEG) Urine RBC 0 /HPF (0-2) Urine WBC 1-4 /HPF (0-4) Urine Squamous Epithelial Cells Few /LPF Urine Bacteria Few /HPF (0-FEW) White Blood Count 6.9 x10^3/uL (4.0-11.0) Red Blood Count 4.48 x10^6/uL (3.50-5.40) Hemoglobin 13.9 g/dL (12.0-15.5) Hematocrit 42.3 % (36.0-47.0) Mean Corpuscular Volume 94 fL (79-100) Mean Corpuscular Hemoglobin 31 pg (25-35) Mean Corpuscular Hemoglobin Concent 33 g/dL (31-37) Red Cell Distribution Width 14.2 % (11.5-14.5) Platelet Count 181 x10^3/uL (140-400) Neutrophils (%) (Auto) 48 % (31-73) Lymphocytes (%) (Auto) 38 % (24-48) Monocytes (%) (Auto) 10 % (0-9) Eosinophils (%) (Auto) 3 % (0-3) Basophils (%) (Auto) 1 % (0-3) Neutrophils # (Auto) 3.3 x10^3uL (1.8-7.7) Lymphocytes # (Auto) 2.6 x10^3/uL (1.0-4.8) Monocytes # (Auto) 0.7 x10^3/uL (0.0-1.1) Eosinophils # (Auto) 0.2 x10^3/uL (0.0-0.7) Basophils # (Auto) 0.1 x10^3/uL (0.0-0.2) Erythrocyte Sedimentation Rate 6 (0-25) Sodium Level 143 mmol/L (136-145) Potassium Level 4.7 mmol/L (3.5-5.1) Chloride Level 109 mmol/L (98-107) Carbon Dioxide Level 23 mmol/L (21-32) Anion Gap 11 (6-14) Blood Urea Nitrogen 11 mg/dL (7-20) Creatinine 0.7 mg/dL (0.6-1.0) Estimated GFR (Cockcroft-Gault) 80.1 Glucose Level 93 mg/dL (70-99) Calcium Level 9.0 mg/dL (8.5-10.1) Triglycerides Level 60 mg/dL (0-150) Cholesterol Level 193 mg/dL (0-200) LDL Cholesterol, Calculated 124 mg/dL (0-100) VLDL Cholesterol, Calculated 12 mg/dL (0-40) Non-HDL Cholesterol Calculated 136 mg/dL (0-129) HDL Cholesterol 57 mg/dL (40-60) Cholesterol/HDL Ratio 3.4 Brief Hospital Course Ms. Lozano is a 82 old female whom PCP recently increased lisinopril from 5-10 mg because of high BP. She came in the blood pressure over 200 and strokelike symptoms mainly right-sided facial droop. Neurology was consulted. Stroke workup is negative. Blood pressure was still high. I increased lisinopril to 20 and started HCTZ 12.5-she can get combo pill 1 tablet once a day at [facility] or [facility]. Blood pressure 130 systolic on discharge. To hold 1 BP med i f drops down too low at home, I have instructed. Also started on some statin and aspirin 325 for primary prevention. Advised to follow-up PCP regarding blood pressure 4 weeks Consults performed neurology Procedures performed stroke workup-negative Discharge Information Condition at Discharge: Improved, Stable Follow Up: Weeks (pcp 4 weeks re bp) Disposition/Orders: D/C to Home Scheduled Aspirin (Aspirin Ec) 325 Mg Tablet., 325 MG PO DAILYWBKFT for primary prevention MDD 1, #60 Prescribed by: CARLOS ALBERTO HURTADO on 08/03/18 1116 Atorvastatin Calcium (Atorvastatin Calcium) 40 Mg Tablet, 40 MG PO QHS for hyperlipids MDD 1, #60 Prescribed by: CARLOS ALBERTO HURTADO on 08/03/18 1116 Budesonide (Pulmicort Flexhaler) 180 Mcg Aer.pow.ba, 2 PUFF IH BID for copd, #1 Ref 6 Prescribed by: CARLOS ALBERTO HURTADO on 08/03/18 1116 Hydrochlorothiazide (Hydrochlorothiazide Capsule ) 12.5 Mg Capsule, 12.5 MG PO DAILY for htn MDD 1, #60 Prescribed by: CARLOS ALBERTO HURTADO on 08/03/18 1116 Lisinopril (Lisinopril) 10 Mg Tablet, 1 TAB PO DAILY for HYPERTENSION, #30 Ref 5 (Reported) Entered as Reported by: CARTER STYLES on 08/02/181838 Last Taken: Unknown Dose on 08/02/18 Last Action: Continued on 08/02/182011 by ILAN SALGADO MD Lisinopril (Lisinopril) 40 Mg Tablet, 20 MG PO DAILY for htn MDD 1, #60 Prescribed by: CARLOS ALBERTO HURTADO on 08/03/18 1116 CARLOS ALBERTO HURTADO MD August 03, 2018 11:19
--- NOTE | 2018-08-03 12:00 | PDOC ---
PROGRESS NOTES Assessment Problems Medical Problems: (1) Acute focal neurological deficit, onset within 3 hours Status: Acute (2) Hypertensive urgency Status: Acute (3) Sudden onset of severe headache Status: Acute Stroke symptoms, most likely related to hypertensive encephalopathy Long history of migraine headaches. Sedimentation rate normal, no sign of giant cell arteritis Hyperlipidemia Plan Blood pressure control Aspirin, statin Advised smoking cessation Rehabilitation evaluation We discussed starting a daily antimigraine medication such as citalopram, she is not interested. Okay for discharge Follow-up with neurology as needed. Subjective Feels a bit swollen she says Objective Vital Signs Date Time Temp Pulse Resp B/P (MAP) Pulse Ox O2 Delivery O2 Flow Rate FiO2 08/03/18 11:10 97.8 61 18 135/50 (78) 93 Room Air 97.8 Intake and Output 08/03/18 07:00 Intake Total 2490 ml Output Total 2225 ml Balance 265 ml Intake Oral 2490 ml Output Urine Total 2225 ml # Voids 1 PHYSICAL EXAM Alert. Oriented to time, place and person. PERRL. EOMI. CN: no focal findings. Muscle tone: normal. Muscle strength: 5/5 DTR: 2+ Plantar reflex: flexor Gait: normal. Sensory exam: no abnormal findings. No cerebellar signs elicited. Review of Relevant I have reviewed the following items guy (where applicable) has been applied. Labs Laboratory Tests Test 08/02/18 10:56 08/02/18 11:01 08/02/18 22:37 08/03/18 03:35 Glucose (Fingerstick) 106 mg/dL (70-99) White Blood Count 9.0 x10^3/uL (4.0-11.0) 6.9 x10^3/uL (4.0-11.0) Red Blood Count 5.51 x10^6/uL (3.50-5.40) 4.48 x10^6/uL (3.50-5.40) Hemoglobin 17.0 g/dL (12.0-15.5) 13.9 g/dL (12.0-15.5) Hematocrit 51.4 % (36.0-47.0) 42.3 % (36.0-47.0) Mean Corpuscular Volume 93 fL (79-100) 94 fL (79-100) Mean Corpuscular Hemoglobin 31 pg (25-35) 31 pg (25-35) Mean Corpuscular Hemoglobin Concent 33 g/dL (31-37) 33 g/dL (31-37) Red Cell Distribution Width 13.9 % (11.5-14.5) 14.2 % (11.5-14.5) Platelet Count 243 x10^3/uL (140-400) 181 x10^3/uL (140-400) Neutrophils (%) (Auto) 61 % (31-73) 48 % (31-73) Lymphocytes (%) (Auto) 28 % (24-48) 38 % (24-48) Monocytes (%) (Auto) 8 % (0-9) 10 % (0-9) Eosinophils (%) (Auto) 2 % (0-3) 3 % (0-3) Basophils (%) (Auto) 1 % (0-3) 1 % (0-3) Neutrophils # (Auto) 5.5 x10^3uL (1.8-7.7) 3.3 x10^3uL (1.8-7.7) Lymphocytes # (Auto) 2.5 x10^3/uL (1.0-4.8) 2.6 x10^3/uL (1.0-4.8) Monocytes # (Auto) 0.7 x10^3/uL (0.0-1.1) 0.7 x10^3/uL (0.0-1.1) Eosinophils # (Auto) 0.2 x10^3/uL (0.0-0.7) 0.2 x10^3/uL (0.0-0.7) Basophils # (Auto) 0.1 x10^3/uL (0.0-0.2) 0.1 x10^3/uL (0.0-0.2) Prothrombin Time 13.5 SEC (11.7-14.0) Prothromb Time International Ratio 1.1 (0.8-1.1) Activated Partial Thromboplast Time 29 SEC (24-38) Sodium Level 141 mmol/L (136-145) 143 mmol/L (136-145) Potassium Level 4.0 mmol/L (3.5-5.1) 4.7 mmol/L (3.5-5.1) Chloride Level 104 mmol/L (98-107) 109 mmol/L (98-107) Carbon Dioxide Level 29 mmol/L (21-32) 23 mmol/L (21-32) Anion Gap 8 (6-14) 11 (6-14) Blood Urea Nitrogen 13 mg/dL (7-20) 11 mg/dL (7-20) Creatinine 0.9 mg/dL (0.6-1.0) 0.7 mg/dL (0.6-1.0) Estimated GFR (Cockcroft-Gault) 59.9 80.1 BUN/Creatinine Ratio 14 (6-20) Glucose Level 113 mg/dL (70-99) 93 mg/dL (70-99) Calcium Level 10.2 mg/dL (8.5-10.1) 9.0 mg/dL (8.5-10.1) Total Bilirubin 0.5 mg/dL (0.2-1.0) Aspartate Amino Transf (AST/SGOT) 19 U/L (15-37) Alanine Aminotransferase (ALT/SGPT) 22 U/L (14-59) Alkaline Phosphatase 73 U/L (46-116) Troponin I Quantitative < 0.017 ng/mL (0.000-0.055) Total Protein 7.5 g/dL (6.4-8.2) Albumin 3.8 g/dL (3.4-5.0) Albumin/Globulin Ratio 1.0 (1.0-1.7) Urine Collection Type Unknown Urine Color Straw Urine Clarity Clear Urine pH 5.5 Urine Specific Rogers <=1.005 Urine Protein Negative mg/dL (NEG-TRACE) Urine Glucose (UA) Negative mg/dL (NEG) Urine Ketones (Stick) Negative mg/dL (NEG) Urine Blood Negative (NEG) Urine Nitrite Negative (NEG) Urine Bilirubin Negative (NEG) Urine Urobilinogen Dipstick 0.2 mg/dL (0.2 mg/dL) Urine Leukocyte Esterase Small (NEG) Urine RBC 0 /HPF (0-2) Urine WBC 1-4 /HPF (0-4) Urine Squamous Epithelial Cells Few /LPF Urine Bacteria Few /HPF (0-FEW) Erythrocyte Sedimentation Rate 6 (0-25) Triglycerides Level 60 mg/dL (0-150) Cholesterol Level 193 mg/dL (0-200) LDL Cholesterol, Calculated 124 mg/dL (0-100) VLDL Cholesterol, Calculated 12 mg/dL (0-40) Non-HDL Cholesterol Calculated 136 mg/dL (0-129) HDL Cholesterol 57 mg/dL (40-60) Cholesterol/HDL Ratio 3.4 Laboratory Tests Test 08/02/18 22:37 08/03/18 03:35 Urine Collection Type Unknown Urine Color Straw Urine Clarity Clear Urine pH 5.5 Urine Specific Rogers <=1.005 Urine Protein Negative mg/dL (NEG-TRACE) Urine Glucose (UA) Negative mg/dL (NEG) Urine Ketones (Stick) Negative mg/dL (NEG) Urine Blood Negative (NEG) Urine Nitrite Negative (NEG) Urine Bilirubin Negative (NEG) Urine Urobilinogen Dipstick 0.2 mg/dL (0.2 mg/dL) Urine Leukocyte Esterase Small (NEG) Urine RBC 0 /HPF (0-2) Urine WBC 1-4 /HPF (0-4) Urine Squamous Epithelial Cells Few /LPF Urine Bacteria Few /HPF (0-FEW) White Blood Count 6.9 x10^3/uL (4.0-11.0) Red Blood Count 4.48 x10^6/uL (3.50-5.40) Hemoglobin 13.9 g/dL (12.0-15.5) Hematocrit 42.3 % (36.0-47.0) Mean Corpuscular Volume 94 fL (79-100) Mean Corpuscular Hemoglobin 31 pg (25-35) Mean Corpuscular Hemoglobin Concent 33 g/dL (31-37) Red Cell Distribution Width 14.2 % (11.5-14.5) Platelet Count 181 x10^3/uL (140-400) Neutrophils (%) (Auto) 48 % (31-73) Lymphocytes (%) (Auto) 38 % (24-48) Monocytes (%) (Auto) 10 % (0-9) Eosinophils (%) (Auto) 3 % (0-3) Basophils (%) (Auto) 1 % (0-3) Neutrophils # (Auto) 3.3 x10^3uL (1.8-7.7) Lymphocytes # (Auto) 2.6 x10^3/uL (1.0-4.8) Monocytes # (Auto) 0.7 x10^3/uL (0.0-1.1) Eosinophils # (Auto) 0.2 x10^3/uL (0.0-0.7) Basophils # (Auto) 0.1 x10^3/uL (0.0-0.2) Erythrocyte Sedimentation Rate 6 (0-25) Sodium Level 143 mmol/L (136-145) Potassium Level 4.7 mmol/L (3.5-5.1) Chloride Level 109 mmol/L (98-107) Carbon Dioxide Level 23 mmol/L (21-32) Anion Gap 11 (6-14) Blood Urea Nitrogen 11 mg/dL (7-20) Creatinine 0.7 mg/dL (0.6-1.0) Estimated GFR (Cockcroft-Gault) 80.1 Glucose Level 93 mg/dL (70-99) Calcium Level 9.0 mg/dL (8.5-10.1) Triglycerides Level 60 mg/dL (0-150) Cholesterol Level 193 mg/dL (0-200) LDL Cholesterol, Calculated 124 mg/dL (0-100) VLDL Cholesterol, Calculated 12 mg/dL (0-40) Non-HDL Cholesterol Calculated 136 mg/dL (0-129) HDL Cholesterol 57 mg/dL (40-60) Cholesterol/HDL Ratio 3.4 Medications Current Medications Ondansetron HCl (Zofran) 4 mg 1X ONCE IV Last administered on 08/02/18at 11:14; Start 08/02/18 at 11:15; Stop 08/02/18 at 11:16; Status DC Fentanyl Citrate (Fentanyl 2ml Vial) 50 mcg 1X ONCE IV Last administered on 08/02/18at 11:14; Start 08/02/18 at 11:15; Stop 08/02/18 at 11:16; Status DC Iohexol (Omnipaque 300 Mg/ml) 75 ml 1X ONCE IV Last administered on 08/02/18at 11:45; Start 08/02/18 at 11:45; Stop 08/02/18 at 11:46; Status DC Info (CONTRAST GIVEN -- Rx MONITORING) 1 each PRN DAILY PRN MC SEE COMMENTS; Start 08/02/18 at 11:45; Stop 08/04/18 at 11:44 Fentanyl Citrate (Fentanyl 2ml Vial) 50 mcg 1X ONCE IV Last administered on 08/02/18at 12:08; Start 08/02/18 at 12:00; Stop 08/02/18 at 12:01; Status DC Sodium Chloride 1,000 ml @ 100 mls/hr Q10H IV Last administered on 08/03/18at 00:44; Start 08/02/18 at 14:44; Stop 08/03/18 at 08:28; Status DC Acetaminophen (Tylenol) 650 mg PRN Q6HRS PRN PO TEMP > 100.4F; Start 08/02/18 at 14:45 Acetaminophen (Tylenol Supp) 650 mg PRN Q4HRS PRN AL TEMP > 100.4F; Start 08/02/18 at 14:45 Aspirin (Ecotrin) 325 mg DAILYWBKFT PO Last administered on 08/03/18at 09:07; Start 08/02/18 at 15:00 Aspirin (Aspirin) 300 mg PRN DAILY PRN AL IF UNABLE TO TAKE PO; Start 08/02/18 at 14:45 Ondansetron HCl (Zofran) 4 mg PRN Q6HRS PRN IV NAUSEA/VOMITING; Start 08/02/18 at 20:15 Senna/Docusate Sodium (Senna Plus) 1 tab BID PO Last administered on 08/03/18at 09:07; Start 08/02/18 at 21:00 Magnesium Hydroxide (Milk Of Magnesia) 2,400 mg PRN Q12HR PRN PO CONSTIPATION; Start 08/02/18 at 20:15 Enoxaparin Sodium (Lovenox 40mg Syringe) 40 mg Q24H SQ ; Start 08/02/18 at 20:15 Lisinopril (Prinivil) 10 mg DAILY PO ; Start 08/03/18 at 09:00; Stop 08/03/18 at 09:00; Status DC Enalaprilat (Vasotec Inj) 1.25 mg PRN Q6HRS PRN IVP HYPERTENSION, SEE COMMENTS; Start 08/02/18 at 20:15 Atorvastatin Calcium (Lipitor) 40 mg QHS PO ; Start 08/02/18 at 21:00 Budesonide (Pulmicort) 0.5 mg RTBID NEB Last administered on 08/03/18at 09:54; Start 08/03/18 at 08:00 Albuterol/ Ipratropium (Duoneb) 3 ml PRN QID NEB ; Start 08/02/18 at 20:15; Stop 08/02/18 at 20:25; Status DC Albuterol Sulfate (Ventolin Neb Soln) 2.5 mg PRN Q6HRS PRN NEB SHORTNESS OF BREATH; Start 08/02/18 at 20:30 Lisinopril (Prinivil) 20 mg DAILY PO Last administered on 08/03/18at 09:08; Start 08/03/18 at 09:00 Hydrochlorothiazide (Microzide) 12.5 mg DAILY PO Last administered on 08/03/18at 09:07; Start 08/03/18 at 09:00 Active Scripts Active Pulmicort Flexhaler (Budesonide) 180 Mcg Aer.pow.[email or web address] 2 Puff IH BID Hydrochlorothiazide Capsule (Hydrochlorothiazide) 12.5 Mg Capsule 12.5 Mg PO DAILY MDD 1 Aspirin Ec (Aspirin) 325 Mg Tablet.dr 325 Mg PO DAILYWBKFT MDD 1 Lisinopril 40 Mg Tablet 20 Mg PO DAILY MDD 1 Atorvastatin Calcium 40 Mg Tablet 40 Mg PO QHS MDD 1 Vitals/I & O Vital Sign - Last 24 Hours 08/02/18 08/02/18 08/02/18 08/02/18 12:08 13:20 13:38 14:53 Temp 98.2 98.2 Pulse 63 58 Resp 14 18 B/P (MAP) 149/49 (82) Pulse Ox 99 99 96 O2 Delivery Room Air 08/02/18 08/02/18 08/02/18 08/02/18 18:20 19:25 20:00 23:30 Temp 98.0 97.7 98.0 97.7 Pulse 58 62 Resp 20 23 B/P (MAP) 122/47 (72) 152/49 (83) Pulse Ox 96 94 O2 Delivery Room Air Room Air Room Air Room Air 08/03/18 08/03/18 08/03/18 08/03/18 03:57 07:25 07:36 09:08 Temp 97.9 97.3 97.9 97.3 Pulse 57 51 51 Resp 16 18 B/P (MAP) 144/67 (92) 173/56 (95) 173/56 Pulse Ox 93 98 O2 Delivery Room Air Room Air Room Air 08/03/18 08/03/18 09:56 11:10 Temp 97.8 97.8 Pulse 61 Resp 18 B/P (MAP) 135/50 (78) Pulse Ox 97 93 O2 Delivery Room Air Intake and Output 08/02/18 08/02/18 08/03/18 15:00 23:00 07:00 Intake Total 940 ml 1550 ml Output Total 475 ml 1750 ml Balance 465 ml -200 ml Images MRI brain: The scalp and calvarium are normal. The superior sagittal sinus demonstrates normal venous flow. The corpus callosum is normal in shape and signal intensity. The posterior fossa is unremarkable. The pituitary and sella are normal. The brainstem and craniocervical junction are unremarkable. Mild prominence of the extra-axial spaces along the convexities bilaterally may be secondary to mild parenchymal volume loss. Diffusion weighted images reveal no hyperintensities to suggest acute cerebral infarction. The susceptibility weighted sequences reveal no evidence of acute or chronic hemorrhage. The ventricles are normal in size and position without evidence of hydrocephalus. The paranasal sinuses are normal. The visualized portions of the mastoids are unremarkable. The orbits appear normal with exception of bilateral lens replacement. Normal flow voids are demonstrated in the carotid arteries and basilar artery. IMPRESSION: 1. No evidence for acute or subacute ischemia. 2. There is prominence of the bilateral extra-axial spaces without evidence for extra-axial hemorrhage. Findings most favor mild parenchymal volume loss. LILIANA BEEBE MD August 03, 2018 12:00
--- NOTE | 2018-08-03 12:55 | NUR ---
Discharge Note: MARLIN DOMINGO Discharge instructions and discharge home medications reviewed with Patient and a copy given. All questions have been answered and understanding verbalized. The following instructions and handouts were given: information about hypertension, medications, appointments, etc. Discontinued lines and drains: IV lines in left AC and right AC removed, catheter tips intact. Patient discharged to home with self care with family member, patient ambulated to discharge vehicle.
== END 2018-08-03 12:55 | disposition home or self-care (01) | DRG 79 ==
LOC: ER 10:48 → 6 SOUTH 11:46
PROVIDERS: ADMIT Internal Medicine; ATTEND Internal Medicine
DX: I67.4 Hypertensive encephalopathy (principal); I16.0 Hypertensive urgency; G43.909 Migraine, unspecified, not intractable, without status migrainosus; I10 Essential (primary) hypertension; E78.5 Hyperlipidemia, unspecified; M19.90 Unspecified osteoarthritis, unspecified site; F17.210 Nicotine dependence, cigarettes, uncomplicated; R29.818 Other symptoms and signs involving the nervous system; I07.1 Rheumatic tricuspid insufficiency; I73.9 Peripheral vascular disease, unspecified; Z82.49 Family history of ischemic heart disease and other diseases of the circulatory system; Z88.6 Allergy status to analgesic agent; Z88.2 Allergy status to sulfonamides; Z82.3 Family history of stroke; Z86.73 Personal history of transient ischemic attack (TIA), and cerebral infarction without residual deficits
CPT/HCPCS: 36415; 70450; 70496; 70498; 70551; 71045; 80048; 80053; 80061; 81001; 82962; 84484; 85025; 85610; 85651; 85730; 87086; 93005; 94640; 94760; 96361; 96374; 96375; 99291; J2405; J3010; J7030; J7626; Q9967